=== PATIENT | female | born 1940 | race Caucasian/White ===

== ENCOUNTER → 2019-04-04 | Outpatient (CLI) | payer MEDICARE ==
[~2019-04-04] MED LIST: BIMA2.5D EACHEYE; HYDR12.58 PO; IOHEXOL 240 MG/ML 50ML VIAL. PO ONE; IOHEXOL 300 MG/ML 100ML VIAL. IV ONE; PRAV80TA2 PO; VALS40TA2 PO
--- NOTE | 2019-04-04 11:19 | KCIC ---
CT ABDOMEN PELVIS WO/W dated 04/04/2019 9:00 AM Indication: Pelvic pain possible right inguinal hernia.. Comparison: No comparison is available. Technique: Contiguous axial imaging of the abdomen and pelvis performed with and without the administration of 100 cc Omnipaque 300. One or more of the following individualized dose reduction techniques were utilized for this examination: 1. Automated exposure control 2. Adjustment of the mA and/or kV according to patient size 3. Use of iterative reconstruction technique Findings: Precontrast imaging shows a 3 mm calcific stone at the lower pole right kidney. No calculus identified along the course of either ureter. No calcific bladder stone is identified. Kidneys are symmetric in size and enhancement on the postcontrast images mild prominence of the right renal pelvis and right ureter relative to the left side. No evidence of mass. Liver, spleen, pancreas, adrenal glands unremarkable. Gallbladder surgically absent. Partially opacified GI tract normal in caliber and contour. No focal bowel wall thickening. No inflammatory stranding in the mesentery. No ascites or lymphadenopathy. Abdominal aorta normal in caliber. Images of pelvis show mildly distended urinary bladder. Uterus is surgically absent. No free fluid or lymphadenopathy. 1.9 cm right ovarian cyst. Evidence of prior right inguinal hernia repair. No recurrent hernia defect. Bone windows show no acute findings. Multilevel spondylosis. Suspected moderate central stenosis at L4-L5 with grade 1 anterolisthesis. Images of lung bases show a tiny noncalcified pulmonary nodule along the right major fissure that measures 2 to 3 mm in size on image 1, nonspecific. Heart size within normal limits. No pleural or pericardial effusion. There are coronary artery calcifications. IMPRESSION: 1. No acute abnormality of abdomen or pelvis. 2. Right-sided nephrolithiasis, nonobstructive. 3. Status post cholecystectomy and hysterectomy Electronically signed by: Renzo Bo MD (04/04/2019 11:16 AM) [id number]
== END | disposition home or self-care (01) ==
LOC: KCIC CT 07:57
PROVIDERS: ATTEND Obstetrics & Gynecology
DX: N20.0 Calculus of kidney (principal); N32.89 Other specified disorders of bladder; N83.201 Unspecified ovarian cyst, right side; I25.10 Atherosclerotic heart disease of native coronary artery without angina pectoris; R91.1 Solitary pulmonary nodule; I10 Essential (primary) hypertension; M47.819 Spondylosis without myelopathy or radiculopathy, site unspecified; M43.16 Spondylolisthesis, lumbar region; Z98.890 Other specified postprocedural states; Z90.49 Acquired absence of other specified parts of digestive tract; Z90.710 Acquired absence of both cervix and uterus
CPT/HCPCS: 74178; 82565; Q9967